=== PATIENT | female | born 1985 | race Caucasian/White ===

== ENCOUNTER 2022-12-27 09:20 | Emergency (ER) | payer SELFPAY ==
[~2022-12-27] VITALS: Ht 170.2 cm; Wt 74.8 kg
[2022-12-27 09:59] LABS: BASO # 0.1 10^3/uL (0.0-0.2); BASO % 1.2 % (0.0-1.0); EOS # 0.3 10^3/uL (0.0-0.5); EOS % 5.5 % (0.0-3.0); HEMATOCRIT 33.3 % (36.0-47.0); HEMOGLOBIN 10.1 g/dl (12.0-15.5); LYMPH # 1.7 10^3/uL (1.5-5.0); MEAN CORPUSCULAR HEMOGLOBIN 22.7 pg (27.0-33.0); MEAN CORPUSCULAR HGB CONC 30.3 g/dl (32.0-36.5); MONO # 0.5 10^3/uL (0.0-0.8); MONO % 9.4 % (2.0-8.0); NEUTROPHILS % 53.7 % (36.0-66.0); PLATELET COUNT, AUTOMATED 363 10^3/uL (150-450); RED BLOOD COUNT 4.44 10^6/uL (4.00-5.40); WHITE BLOOD COUNT 5.6 10^3/uL (4.0-10.0)
[2022-12-27 10:19] LABS: LIPASE 31 U/L (12-53)
[2022-12-27 10:21] LABS: ALBUMIN 3.7 G/DL (3.2-5.2); ALKALINE PHOSPHATASE 65 U/L (46-116); ALT/SGPT 10 U/L (7.0-40); AST/SGOT 16 U/L (<34); BILIRUBIN,DIRECT 0.1 MG/DL (<0.4); BILIRUBIN,TOTAL 0.3 MG/DL (0.3-1.2); BLOOD UREA NITROGEN 13 MG/DL (9-23); CALCIUM LEVEL 9.6 MG/DL (8.5-10.1); CARBON DIOXIDE LEVEL 28 MMOL/L (20-31); CHLORIDE LEVEL 109 MMOL/L (98-107); GLOMERULAR FILTRATION RATE > 60.0 (>60); GLUCOSE, FASTING 85 MG/DL (60-100); POTASSIUM SERUM 4.2 MMOL/L (3.5-5.1); SODIUM LEVEL 140 MMOL/L (136-145); TOTAL PROTEIN 6.8 G/DL (5.7-8.2)
[2022-12-27 10:26] LABS: RSV AMPLIFICATION NEGATIVE (NEGATIVE)
[2022-12-27 11:00] LABS: HCG, SERUM QUALITATIVE NEGATIVE (NEGATIVE)
[2022-12-27] MEDS ORDERED: KETOROLAC 30 MG/ML 1ML VIAL IV ONE (12:05)
[2022-12-27] MEDS ORDERED: NS 1,000 ML IV ONE (12:05)
[2022-12-27 12:33] LABS: MAGNESIUM LEVEL 1.9 MG/DL (1.8-2.4)
[2022-12-27] MEDS: GASTROGRAFIN SOLUTION 30ML PO SCH ×2 (12:46→13:14)
[2022-12-27] MEDS ORDERED: ISOVUE-370 76% 100ML VIAL As Ordered ONE (13:43)
[2022-12-27 14:30] VITALS: BP 111/71; TEMP 98.3; O2SAT 100
== END 2022-12-27 14:42 | disposition home or self-care (01) ==
LOC: M ED 09:20
DX: R10.84 Generalized abdominal pain (principal); K91.1 Postgastric surgery syndromes; M25.559 Pain in unspecified hip; F17.200 Nicotine dependence, unspecified, uncomplicated; F10.10 Alcohol abuse, uncomplicated; Z98.84 Bariatric surgery status
CPT/HCPCS: 73502; 74177; 80048; 80076; 83690; 83735; 84703; 85025; 87631; 96361; 96374; 99284; J1885; Q9963; Q9967

== ENCOUNTER 2024-11-18 17:30 | Emergency (ER) | payer MEDICAID, OTHER, SELFPAY ==
[~2024-11-18] VITALS: Ht 170.2 cm; Wt 90.4 kg
[2024-11-18] MEDS ORDERED: TOPI-256 (17:41)
[2024-11-18] MEDS ORDERED: VENL225T (17:41)
[2024-11-18] MEDS ORDERED: PRAZ5CAP (17:41)
[2024-11-18] MEDS ORDERED: GABA-1171 (17:41)
[2024-11-18] MEDS: METOCLOPRAMIDE 10 MG TAB PO ONE (19:14)
[2024-11-18 19:23] LABS: HCG, SERUM QUALITATIVE NEGATIVE (NEGATIVE)
[2024-11-18 19:49] LABS: BASO # 0.1 10^3/uL (0.0-0.2); BASO % 0.7 % (0.0-1.0); EOS # 0.4 10^3/uL (0.0-0.5); EOS % 5.7 % (0.0-3.0); LYMPH # 2.2 10^3/uL (1.5-5.0); LYMPH % 31.2 % (24.0-44.0); MONO # 0.5 10^3/uL (0.0-0.8); MONO % 7.2 % (2.0-8.0); NEUTROPHILS # 3.8 10^3/uL (1.5-8.5); NEUTROPHILS % 55.1 % (36.0-66.0); PLATELET COUNT, AUTOMATED 306 10^3/uL (150-450)
[2024-11-18 19:53] LABS: KETONE, URINE AUTO RFX TRACE mg/dL (NEGATIVE); MUCUS, URINE RFX SMALL (NEGATIVE); NITRITE, URINE AUTO RFX NEGATIVE (NEGATIVE); RBC, URINE AUTO RFX 0 /HPF (0-3); SQUAM EPITHELIAL CELL UR AURFX 4 /HPF (0-6); WBC, URINE AUTO RFX 3 /HPF (0-3)
[2024-11-18 20:02] LABS: LEUKOCYTE ESTERASE UR AUTO RFX TRACE (NEGATIVE)
[2024-11-18 20:15] LABS: AMPHETAMINES LEVEL URINE NEGATIVE (NEGATIVE); BARBITURATES URINE NEGATIVE (NEGATIVE); BENZODIAZEPINES URINE NEGATIVE (NEGATIVE); CANNABINOIDS URINE NEGATIVE (NEGATIVE); METHADONE URINE NEGATIVE (NEGATIVE); OPIATES URINE NEGATIVE (NEGATIVE); PHENCYCLIDINE URINE NEGATIVE (NEGATIVE)
[2024-11-18 21:04] LABS: COCAINE METABOLITE URINE POSITIVE (NEGATIVE)
[2024-11-18] MEDS ORDERED: REGL10TA6 PO (21:10)
[2024-11-18] MEDS ORDERED: MACR100C43 PO (21:11)
[2024-11-18] MEDS: NITROFURANTOIN 100 MG CAP PO ONE (21:18)
[2024-11-18 21:19] VITALS: BP 122/78; TEMP 98.9; O2SAT 99
[2024-11-18 21:26] LABS: ALT/SGPT 10 U/L (7.0-40); AST/SGOT 12 U/L (<34); CALCIUM LEVEL 10.3 MG/DL (8.5-10.1); CARBON DIOXIDE LEVEL 18 MMOL/L (20-31); CHLORIDE LEVEL 111 MMOL/L (98-107); CREATININE FOR GFR 0.73 MG/DL (0.55-1.30); GLOMERULAR FILTRATION RATE > 90.0 (>60); POTASSIUM SERUM 4.3 MMOL/L (3.5-5.1); SODIUM LEVEL 143 MMOL/L (136-145)
== END 2024-11-18 21:21 | disposition home or self-care (01) ==
LOC: M ED 17:30
DX: R11.2 Nausea with vomiting, unspecified (principal); N39.0 Urinary tract infection, site not specified; F14.10 Cocaine abuse, uncomplicated; F41.9 Anxiety disorder, unspecified; F32.A Depression, unspecified; Z98.84 Bariatric surgery status; Z79.899 Other long term (current) drug therapy; Z79.2 Long term (current) use of antibiotics